=== PATIENT | male | born 1980 | race Caucasian/White ===

== ENCOUNTER 2021-08-24 15:41 | Emergency (ER) | payer OTHER ==
[2021-08-24] MEDS ORDERED: KETOROLAC 60 MG/2 ML VIAL IM STA (16:03)
[2021-08-24] MEDS ORDERED: HYDROmorphone 1 MG/ML CARPUJECT IM STA (16:03)
--- NOTE | 2021-08-24 16:05 | ED Physician Documentation ---
PD HPI BACK PAIN - Stated complaint Stated Complaint: BACK PAIN - Chief complaint Chief Complaint: Back Pain - History obtained from History obtained from: Patient - Additional information Additional information: He was sledding yesterday and went down sideways and hit a ice wall with his left hip and left low back. It was not hurting too much for the next couple of hours until he bent over and then was incapacitated by the pain. The pain is sharp and in the left paralumbar area and the left posterior hip. He is able to walk but is using crutches for this. No other injuries. He was seen at a hospital in [place] for this and x-rays were done, reportedly negative. He was given a prescription for prednisone, hydrocodone, and Flexeril which have not been helpful. Review of Systems Constitutional: reports: Reviewed and negative Eyes: reports: Reviewed and negative Ears: reports: Reviewed and negative Nose: reports: Reviewed and negative Throat: reports: Reviewed and negative Cardiac: reports: Reviewed and negative Respiratory: reports: Reviewed and negative PD PAST MEDICAL HISTORY - Past Medical History Past Medical History: No - Present Medications Home Medications: Ambulatory Orders Medication Instructions Recorded Confirmed Cyclobenzaprine [Flexeril] 10 mg PO TID PRN 08/24/21 08/24/21 Hydrocodone/Acetaminophen 1 each PO Q6HR PRN 08/24/21 08/24/21 [Hydrocodone-Acetamin 5-300 mg] Ibuprofen [Motrin] 800 mg PO Q8H PRN #30 tablet 08/24/21 Lidocaine Patch 5% [Lidoderm Patch] 1 patch TOP DAILY PRN #10 patch 08/24/21 Oxycodone HCl/Acetaminophen 1 - 2 tab PO Q6H PRN #20 tablet 08/24/21 [Percocet 7.5-325 mg Tablet] predniSONE [Deltasone] 40 mg PO DAILY 08/24/21 08/24/21 - Allergies Allergies/Adverse Reactions: Allergies Allergy/AdvReac Type Severity Reaction Status Date / Time No Known Drug Allergies Allergy Verified 08/24/21 15:50 - Social History Does the pt smoke?: No Smoking Status: Never smoker PD ED PE NORMAL - Vitals Vital signs reviewed: Yes - General General: Alert and oriented X 3, No acute distress - Neck Neck: Supple, no meningeal sign, C-Spine cleared by NEXUS criteria - Extremities Extremities: Other (Mild tenderness of the lumbar spine and left paralumbar musculature. He has some tenderness of the left buttock more than the left hip and internal and external rotation of the left hip seems painless. There is no obvious bruising or swelling.) - Neuro Neuro: Alert and oriented X 3, senior nurse manager 2-12 intact, No motor deficit, No sensory deficit, Normal speech, Other (The patient has equal and normal Achilles and patellar reflexes bilaterally. Normal sensation in all areas of the legs. Patient denies saddle anesthesia. Normal strength in flexion-extension at the ankles, knees, and flexion of the hips.) Eye Opening: Spontaneous Motor: Obeys Commands Verbal: Oriented GCS Score: 15 Results - Vitals Vitals: Vital Signs - 24 hr 08/24/21 08/24/21 15:46 17:23 Temperature 36.2 C L Heart Rate 100 61 Respiratory 16 16 Rate Blood Pressure 168/91 H 146/92 H O2 Saturation 96 95 Oxygen O2 Source Room air PD MEDICAL DECISION MAKING - ED course ED course: 41-year-old gentleman with significant pain after a sledding accident with p reviously normal x-rays at another hospital. CT imaging was done without acute abnormality although he was counseled on the incidental finding of the fat- containing umbilical hernia which is not bothering him. After the administration of IM Toradol and 2 mg of Dilaudid he was moving without limitation. Departure - Departure Disposition: 01 Home, Self Care Clinical Impression: Back spasm Contusion, hip Qualifiers: Encounter type: initial encounter Laterality: left Qualified Code(s): S70.02XA - Contusion of left hip, initial encounter Condition: Good Record reviewed to determine appropriate education?: Yes Instructions: ED Low Back Pain Injury Prescriptions: Lidocaine Patch 5% [Lidoderm Patch] 1 patch TOP DAILY PRN #10 patch PRN Reason: pain Ibuprofen [Motrin] 800 mg PO Q8H PRN #30 tablet PRN Reason: PAIN &/OR FEVER Oxycodone HCl/Acetaminophen [Percocet 7.5-325 mg Tablet] 1 - 2 tab PO Q6H PRN #20 tablet PRN Reason: Pain Comments: I sent your prescriptions electronically to [facility] in [place]. As discussed CT imaging of the lumbar spine and pelvis was unremarkable except for the incidental finding of a small fat-containing umbilical hernia. By process of illumination it seems you have a bad muscle spasm in your back, I am prescribing some stronger pain killers and a different class of anti- inflammatories then they gave you in [place]. Return for new or worsening symptoms, [place] I am prescribing a short course of narcotic pain medication for you. These are potentially dangerous and addictive medications that should be used carefully. These medications may constipate you. Take an sahu-dss-ugyuovj stool softener (docusate) twice daily with plenty of water while taking these medications. If you go 24 hours without a bowel movement, take bkxk-uch-fluvmex miralax, per package instructions. Do not drink or drive while taking these medications. If you received narcotic or sedating medications while in the emergency department, do not drive for 24 hours. Store this medication in a safe, secure place and out of reach of children. It is a violation of federal law to give or sell this medication to another person or to use in a manner other than prescribed. The ED will not refill narcotic prescriptions, including prescriptions lost or stolen. To dispose of unwanted medications: 1. [facility] [address] in [place] has a medication drop box. They accept prescription medications (in pill form) Wednesday through Wednesday 9:00 a.m. to 5:00 p.m. 2. The [facility] [employer] accepts prescription medications (in pill form only) for disposal year round. Call for more information. 3. Contact the [facility] for the next [facility] sponsored prescription drug collection event. , [phone], or [phone]; Note that many narcotic pain relievers also contain Tylenol/acetaminophen. Please ensure that your total dose of acetaminophen from all sources does not exceed 3 g (3000 mg) per day. Forms: Activity restrictions Discharge Date/Time: 08/24/21 17:48
--- NOTE | 2021-08-24 17:14 | CT Report ---
PROCEDURE: LUMBAR SPINE WO INDICATIONS: back/pelvic inj TECHNIQUE: Noncontrast 3 mm thick sections acquired from the T12 level to the sacrum. Sagittal and coronal refo rmats were constructed. For radiation dose reduction, the following was used: automated exposure co ntrol, adjustment of mA and/or kV according to patient size. COMPARISON: None. FINDINGS: Image quality: Excellent. Bones: There is normal bony alignment. No acute vertebral body compression fractures. No suspiciou s lytic or blastic bony lesions. Central spinal caliber is of normal overall caliber. No pars defec ts. Soft tissues: No retroperitoneal masses or hematomas. Visualized aorta is normal in caliber. IMPRESSION: CT of lumbar spine without acute fracture or traumatic malalignment. Reviewed by: Gabe Blue MD on 08/24/2021 4:12 PM [facility] Approved by: Gabe Blue MD on 08/24/2021 4:12 PM [facility] Station ID: [id number]
--- NOTE | 2021-08-24 17:18 | CT Report ---
PROCEDURE: PELVIS WO INDICATIONS: back/pelvic inj TECHNIQUE: Noncontrast 3 mm axial sections acquired through the bony pelvis, with coronal and sagittal reformatt ing. For radiation dose reduction, the following was used: automated exposure control, adjustment of mA and/or kV according to patient size. COMPARISON: None. FINDINGS: Image quality: Excellent. Bones: Visualized osseous structures of the pelvis appear intact. No acute fracture or dislocation. Bilateral sacroiliac joints are symmetric. Soft tissues: Soft tissues of the pelvis appear unremarkable. No suspicious mass lesions or abnormal fluid collections. No pathologic pelvic free fluid seen. Small fat-containing umbilical hernia witho ut acute inflammation. IMPRESSION: Pelvis without acute fracture or dislocation. Small fat-containing umbilical hernia without acute inflammation. Reviewed by: Gabe Blue MD on 08/24/2021 4:17 PM [facility] Approved by: Gabe Blue MD on 08/24/2021 4:17 PM [facility] Station ID: [id number]
[2021-08-24] MEDS ORDERED: oxyCODONE/ACET 5/325 Prepack 4 PO STA (17:35)
[2021-08-24] MEDS ORDERED: LIDOCAINE PATCH 5% TOP STA (17:36)
[2021-08-24 20:25] VITALS: BP 146/92
== END 2021-08-24 17:48 | disposition home or self-care (01) ==
LOC: ED 15:41
DX: M62.830 Muscle spasm of back (principal); S70.02XA Contusion of left hip, initial encounter; W22.01XA Walked into wall, initial encounter; Y93.23 Activity, snow (alpine) (downhill) skiing, snowboarding, sledding, tobogganing and snow tubing; Y92.89 Other specified places as the place of occurrence of the external cause
CPT/HCPCS: 72131; 72192; 96374; 96375; 99283; 99284; A9270; J1170

== ENCOUNTER 2021-09-22 12:22 | Outpatient (CLI) | payer OTHER ==
--- NOTE | 2021-09-22 16:21 | MRI Report ---
PROCEDURE: Lumbar Spine W/O INDICATIONS: LOW BACK PAIN TECHNIQUE: Noncontrast sagittal T1 spin echo and T2 fast echo, sagittal STIR, axial T1 and T2 fast spin echo thr ough the lumbar spine. In cases with scoliosis, additional coronal T2 fast spin echo may be performe d. COMPARISON: None. FINDINGS: Image quality: Excellent. Alignment and Curvature: There is normal bony alignment. Bone Marrow: Marrow is of normal overall signal. No acute vertebral body compression fractures. Spinal Cord: Conus medullaris terminates at the T12-L1 disc level. Visualized cord demonstrates nor mal signal and size. Paraspinous Soft Tissues: No paravertebral masses. T12-L1: Normal in appearance. L1-L2: Normal in appearance. L2-L3: Normal in appearance. L3-L4: Normal in appearance. L4-L5: Loss of disc signal. Mild, diffuse disc bulge. Mild bilateral separately. Mild narrowing of the central canal. Mild bilateral neural foraminal narrowing. No neural compression. L5-S1: Loss of disc signal. Mild, diffuse disc bulge. Mild bilateral facet hypertrophy. No central stenosis. Mild bilateral neural foraminal narrowing. No neural compression IMPRESSION: 1. Mild L4-L5 and L5-S1 degenerative disc disease. 2. Mild L4-L5 and L5-S1 facet arthropathy. 3. Mild L4-L5 central canal narrowing. 4. Mild bilateral L4-L5 and L5-S1 neural foraminal narrowing. 5. No neural compression. Reviewed by: Angie Bedoya MD, PhD on 09/22/2021 4:19 PM PDT Approved by: Angie Bedoya MD, PhD on 09/22/2021 4:19 PM PDT Station ID: [id number]
== END 2021-09-22 12:23 | disposition home or self-care (01) ==
LOC: DI 12:22
PROVIDERS: ATTEND Student in an Organized Health Care Education/Training Program
DX: M51.36 Other intervertebral disc degeneration, lumbar region (principal); M48.061 Spinal stenosis, lumbar region without neurogenic claudication; M51.37 Other intervertebral disc degeneration, lumbosacral region; M48.07 Spinal stenosis, lumbosacral region; M47.817 Spondylosis without myelopathy or radiculopathy, lumbosacral region; M47.816 Spondylosis without myelopathy or radiculopathy, lumbar region

== ENCOUNTER 2022-08-10 12:49 | Outpatient (CLI) | payer OTHER ==
--- NOTE | 2022-08-10 22:51 | SLEEP CARE CONSULTATION ---
Information from patient questionnaire entered by Sumi Peterson. I have reviewed and concur with the information entered by Sumi Peterson. This document represents the service I personally performed and the decisions made by me, Guille Panchal MD, [facility]. History of Present Illness Service Date and Time: 08/10/2022 1249 Reason for Visit: New patient Chief Complaint: reports: Unrefreshed sleep, Snoring, Excessive daytime sleepiness, Fatigue, Frequent awakenings at night Date of Onset: 4-5YRS Usual bedtime: 8-9PM Time it takes to fall asleep: 30-45MIN Snores at night: Yes Observed to quit breathing while asleep: No Sleeps alone due to snoring: No Number of times waking at night: 2-3 Reasons for waking at night: reports: Snoring, Other (UNKOWN) Toss, Turn, or Twitch while sleeping: Yes Recalls having dreams: No Usually gets out of bed at: 415AM Feels refreshed in the morning: No Morning headache: No Sleepy or fatigued during the day: Yes Ever fallen asleep while driving: Yes Takes day naps: Yes Dreams during day naps: No Prior sleep studies: No Additional HPI information: I had the pleasure of seeing Mr. Olivo today regarding the possibility of him having a sleep disorder. As you know, he is a 42-year-old gentleman who complains of frequent awakenings, loud snore, unrefreshed sleep, persistent fatigue, and excessive daytime sleepiness for the past 4 5 years. The patient tells me that he normally goes to bed around 8 - 9 pm, and it takes him approximately 30 - 45 minutes to fall asleep. He has been told that he snores loudly and irregularly at night. He has never been observed to stop breathing in his sleep. His can still sleep in the same bed. He can recall waking up on the average of 2 - 3 times during the night. Most of the time he wakes up because of his own snoring and unknown reason. There is a lot of tossing and turning in his sleep. No somniloquy (sleep talking) or somnambulism (sleep walking). He has bruxism. Generally, there is no recollection of dreams. In the morning he usually gets up out of the bed around 4:15 a.m. not feeling refreshed nor rested. He usually does not have a morning headache. During the day he complains of feeling sleepy and fatigued. His score on [place] Sleepiness Scale is 20 out of 24. He has fallen asleep while driving and has gone out of the [place]. He usually takes naps during the day. Upon falling asleep during the day he denies having vivid dreams. He has never had sleep paralysis, experienced cataplexy or symptoms but reports restless leg syndrome. He reports having impaired concentration during the day. - Parasomnia Symptoms Ever been unable to move upon waking from sleep: No Walks in sleep: No Talks in sleep: No Ever acted out dreams in sleep: No Ever felt weak in the knees when startled or emotional: No Bothered by creepy, crawly, restless sensations in legs: Yes Problems with memory or concentration: Yes Subjective Initial [place] Sleepiness Scale score: 20 (08-23-22) Past Medical History Past Medical History: reports: Hypertension, Impotence, Other (VERTIGO, JOINT PAIN) Social History The patient's occupation is a AM. Patient is and lives in [place]. Have you smoked in the past 12 months: No Alcohol use: Yes Alcohol amount and frequency: 7-2 EVERY MONTH OR SO Caffeine use: Yes Caffeine amount and frequency: 2-3 DAILY Family History Family history of sleep disordered breathing: No Allergies and Home Medications Known drug allergies: No Drug allergies reviewed: Yes Home medication list reviewed: Yes Allergy and home medication list: Allergies No Known Drug Allergies Allergy (Verified 08/24/21 15:50) Review of Systems Weight gain over past 5 years: 20 Weight loss over past 5 years: 12 Cardiovascular: reports: high blood pressure Respiratory: denies: shortness of breath, wheeze, sputum production, chronic cough, other Gastrointestinal: denies: heartburn, difficulty swallowing, nausea, vomitting, diarrhea, abdominal pain, other Urinary: reports: impotence Neurological: denies: headaches, seizure, head trauma, disorientation, speech dysfunction, gait or balance problems, fainting or unconsciousness, other Psychiatric: reports: Attention Deficit Hyperactivity, anxiety Ear/Nose/Throat: reports: nasal congestion, wisdom teeth removed Endocrine: reports: sluggishness Musculoskeletal: reports: joint pain, back pain Physical Exam Vital signs obtained and entered by: SUMI Cespedes MA Blood Pressure: 144/90 (LEFT ARM) Cuff size: regular Heart Rate: 75 O2 Saturation: 97 Height: 6 ft 1 in Weight: 225 lb 9.6 oz Body Mass Index: 29.7 BMI Classification: Overweight Neck circumference: 16.75 Mood/affect: Normalo Nostrils: patent to airflow Turbinates: normal Septum: midline Mouth and throat: narrow oropharynx Soft palate: long Hard palate: normal Uvula: normal Uvula visualization: 50% Mallampati Class II Tongue: normal in size Tonsils: small Neck: normal w/o lymphadenopathy or thyromegaly Heart: regular rate and rhythm Lungs: clear bilaterally Extremities: no edema or clubbing Neurologic: intact Impression and Plan IMPRESSION: 1. Obstructive Sleep Apnea-Hypopnea Syndrome, as suggested by history of loud and irregular snoring, frequent awakenings during the night, unrefreshed sleep, cognitive impairment, and daytime hypersomnolence. Narrow oropharynx is a common predisposing factor for obstructive sleep apnea-hypopnea syndrome. Untreated obstructive sleep apnea can also cause hypertension. I recommend proceeding to polysomnography to confirm the diagnosis and to assess severity. I informed the patient of what the sleep studies involve and after some discussion, he agreed to proceed. Plan: 1. Schedule polysomnography and return in 1 to 2 weeks after the study to discuss result and initiate therapy. 2. Avoid long distance driving or when feeling sleepy. 3. Avoid alcohol, sedative and muscle relaxant around bedtime. 4. Attempt to lose some weight. Counseling Topics: Weight control Follow up with Sleep Care in: 1-2 months Visit Type: In Office Time Spent with Patient (minutes): 15 Provider Statement: I spent 100% of the Face to Face Visit with the patient with greater than 50% spent counseling the patient and coordination of care.
[2022-08-10 22:52] VITALS: BP 144/90
== END 2022-08-10 12:50 | disposition home or self-care (01) ==
LOC: SC 12:49
PROVIDERS: ATTEND Internal Medicine Pulmonary Disease
DX: R06.83 Snoring (principal); G47.10 Hypersomnia, unspecified; R41.89 Other symptoms and signs involving cognitive functions and awareness; G47.8 Other sleep disorders
CPT/HCPCS: 99202; 99212

== ENCOUNTER 2022-09-01 19:33 | Outpatient (CLI) | payer OTHER | END 2022-09-01 19:34 | disposition home or self-care (01) | LOC: SC 19:33 | PROVIDERS: ATTEND Internal Medicine Pulmonary Disease | DX: R06.83 Snoring (principal); G47.8 Other sleep disorders; R44.8 Other symptoms and signs involving general sensations and perceptions; G47.10 Hypersomnia, unspecified; R53.83 Other fatigue; I10 Essential (primary) hypertension | CPT/HCPCS: 95810 ==

== ENCOUNTER 2022-09-08 10:56 | Outpatient (CLI) | payer OTHER ==
[2022-09-08 11:51] VITALS: BP 120/70
--- NOTE | 2022-09-08 11:51 | SLEEP CARE CONSULTATION ---
Information from patient questionnaire entered by Sumi Peterson. I have reviewed and concur with the information entered by Sumi Peterson. This document represents the service I personally performed and the decisions made by , Raven Quijano ARNP. History of Present Illness Service Date and Time: 09/08/2022 105 Initial [place] Sleepiness Scale score: 20 (08-23-22) Current [place] Sleepiness Scale score: 20 (09/08/22) Additional HPI information: BAYLEE FOY returns for follow up and results of the recently performed polysomnography. The patient was informed of the following findings: No significant sleep disordered breathing with an average AHI of 0.8 and nico oxygen saturation of 91%. I explained the pathophysiology behind obstructive sleep apnea. Patient does not have sleep apnea and was advised how weight gain could increase the risk of developing sleep apnea in the future. I strongly encouraged the patient to lose weight. Patient has loud snoring. Snoring can be reduced by weight loss. Weight loss is best achieved with diet consult. Patient instructed to contact PCP for referral. Snoring can also be treated with an oral appliance from a dentist. Advised to check insurance coverage. In addition, an ENT evaluation can be do to see if other treatment is indicated. Patient counseled not drink alcohol less than 4 hours before bedtime as it can increase snoring and apnea. Patient was cautioned about risks of drowsy driving until sleepiness symptoms resolve. Sleep Study - Results Type of Sleep Study: Polysomnography (COMPLETED 09/01/22) Prior sleep studies: No Polysomnography/Home Sleep Study results: IMPRESSION: The quality of the study is good. The patient had normal sleep efficiency. The sleep architecture was relatively normal considering the first-night effect. Respiratory monitoring showed no significant sleep disordered breathing (AHI = 0.8) or hypoxia (nico oxygen saturation of 91%). The patient slept adequately in supine position (supine AHI = 0.8; non-supine = 1.48). Snore was loud in intensity. There was no significant periodic leg movement of sleep. Cardiac rhythm was normal sinus rhythm without significant arrhythmia. No abnormal behavior (parasomnia) observed during the night. Allergies and Home Medications Known drug allergies: No Drug allergies reviewed: Yes Home medication list reviewed: Yes (sleeping pill (starts with M, not sure of name)) Allergy and home medication list: Allergies No Known Drug Allergies Allergy (Verified 09/07/22 16:34) Review of Systems Review of systems same as previous: Yes (no changes) Physical Exam Vital signs obtained and entered by: SUMI Cespedes MA Blood Pressure: 120/70 (LEFT ARM) Cuff size: regular Heart Rate: 67 O2 Saturation: 98 Height: 6 ft 1 in Weight: 219 lb 12.8 oz Body Mass Index: 29.0 BMI Classification: Overweight Impression and Plan 1. Snoring but no significant sleep disordered breathing. Patient advised that often weight loss will reduce snoring as well as apnea risk. An oral appliance can also be used for snoring. This would require a dental consultation. Patient cautioned not to use other online appliances as can cause bite issues. A list of accredited dentists in [facility] and one local dentist who makes oral appliances is available in office as needed. Patient is advised to check if insurance will cover. An ENT consult can also be helpful to determine if any other treatment is an option. 2. Insomnia, sleep onset and maintenance. He states he has trouble with falling asleep at the beginning of night and his doctor just prescribed a medication (starting with a "M") yesterday. He has not been able to use it yet. He states he also wakes up frequently during the night. His [place] is 20/24 today. Insomnia is generally caused by an irregular sleep schedule, spending too much time in bed, napping, caffeine, electronics, lack of a relaxing bedtime ritual and clock watching. Other factors can include anxiety/depression, pain, medications, and obstructive sleep apnea. I will have him follow up for evaluation of his insomnia. A sleep diary will be completed for the next 2 weeks to assist implementation of recommendations and for further evaluation of sleep concerns. * Attempt to lose weight * Avoid alcohol consumption near bedtime * The patient is cautioned about driving until sleepiness is completely resolved. * Return in 1-2 months for follow up of insomnia. Counseling Topics: Weight loss health impact Visit Type: In Office Time Spent with Patient (minutes): 21 Provider Statement: I spent 100% of the Face to Face Visit with the patient with greater than 50% spent counseling the patient and coordination of care.
== END 2022-09-08 10:57 | disposition home or self-care (01) ==
LOC: SC 10:56
PROVIDERS: ATTEND Nurse Practitioner Family
DX: R06.83 Snoring (principal); G47.00 Insomnia, unspecified; E66.3 Overweight; Z68.29 Body mass index [BMI] 29.0-29.9, adult
CPT/HCPCS: 99212; 99213

== ENCOUNTER 2022-10-19 08:41 | Outpatient (CLI) | payer OTHER ==
--- NOTE | 2022-10-19 16:50 | SLEEP CARE CONSULTATION ---
Information from patient questionnaire entered by Belia Peterson. I have reviewed and concur with the information entered by Belia Peterson. This document represents the service I personally performed and the decisions made by me, Guille Panchal MD, [facility]. History of Present Illness Service Date and Time: 10/19/2022 0841 Reason for follow up: other (6 WEEK F/U ON INSOMNIA AND SLEEP DIARIES ) Prior sleep studies: No HPI additional information: Mr. Olivo has insomnia involving mostly the sleep onset. He recently had a normal sleep study that did not show any sleep disrupting condition. His sleep efficiency and architecture were completely normal. He was instructed to keep a sleep log which brought in with him today. Upon reviewing the log, it appears that the patient has sleep onset insomnia on weeknights when he goes to bed around 9 pm. He gets up at 5:30 am almost everyday, including weekends. He is seeing a psychologist to help with his sleep. Sleep Study - Results Prior sleep studies: No Subjective Initial [place] Sleepiness Scale score: 20 (08-23-22) Allergies and Home Medications Drug allergies reviewed: Yes Home medication list reviewed: Yes Allergy and home medication list: Allergies No Known Drug Allergies Allergy (Verified 10/16/22 09:30) Review of Systems Review of systems same as previous: Yes Physical Exam Vital signs obtained and entered by: BELIA Cespedes MA Height: 6 ft 1 in Impression and Plan IMPRESSION: 1. Insomnia, involving mostly the sleep onset. I advised him to delay his bedtime by an hour to 10:30 pm. The patient did not have any problem falling asleep during the sleep study when the light was turned off at this time. I encouraged him to follow up with he psychologist because cognitive behavior therapy (CBTi) is the best treatment for insomnia. PLAN: 1. Follow up with his psychologist. 2. Maintain a regular wake up time and spend no more than 7 hours in bed at night. Avoid naps. 3. Return for a follow up on as needed basis. Follow up with Sleep Care in: as needed Follow up with: Other (psychologist) Visit Type: In Office Time Spent with Patient (minutes): 15 Provider Statement: I spent 100% of the Face to Face Visit with the patient with greater than 50% spent counseling the patient and coordination of care.
== END 2022-10-19 08:42 | disposition home or self-care (01) ==
LOC: SC 08:41
PROVIDERS: ATTEND Internal Medicine Pulmonary Disease
DX: G47.00 Insomnia, unspecified (principal)
CPT/HCPCS: 99212